=== PATIENT | female | born 2000 | race Caucasian/White ===

== ENCOUNTER → 2023-11-08 | Outpatient (CLI) | payer OTHER ==
[2023-11-08 13:36] LABS: BASO % 0.3 % (0.0-1.0); EOS # 0.1 10^3/uL (0.0-0.5); HEMATOCRIT 38.3 % (36.0-47.0); HEMOGLOBIN 13.5 g/dl (12.0-15.5); LYMPH # 2.8 10^3/uL (1.5-5.0); LYMPH % 46.4 % (24.0-44.0); MEAN CORPUSCULAR HEMOGLOBIN 30.6 pg (27.0-33.0); MEAN CORPUSCULAR HGB CONC 35.2 g/dl (32.0-36.5); MEAN CORPUSCULAR VOLUME 86.8 fl (80.0-96.0); MONO # 0.4 10^3/uL (0.0-0.8); MONO % 5.8 % (2.0-8.0); NEUTROPHILS # 2.8 10^3/uL (1.5-8.5); NEUTROPHILS % 46.3 % (36.0-66.0); PLATELET COUNT, AUTOMATED 355 10^3/uL (150-450); RED BLOOD COUNT 4.41 10^6/uL (4.00-5.40); WHITE BLOOD COUNT 6.1 10^3/uL (4.0-10.0)
[2023-11-08 14:00] LABS: ERYTHROCYTE SEDIMENTATION RATE 14 mm/hr (0-20)
[2023-11-08 14:01] LABS: C REACTIVE PROTEIN QUANTITATIV < 0.40 MG/DL (<1.0); LIPASE 29 U/L (12-53)
[2023-11-08 14:02] LABS: CPK CREATINE PHOSPHOKINASE 45 U/L (34-145)
[2023-11-08 14:03] LABS: IRON (FE) 110 UG/DL (50-170); PERCENT SATURATION 37.2 % (13.2-45.0); THYROID STIMULATING HORMONE 1.422 uIU/ML (0.55-4.78); TOTAL IRON BINDING CAPACITY 296 UG/DL (250-425)
[2023-11-08 14:04] LABS: ALBUMIN 4.2 G/DL (3.2-5.2); ALKALINE PHOSPHATASE 64 U/L (46-116); ALT/SGPT 10 U/L (7.0-40); AST/SGOT 8 U/L (<34); BILIRUBIN,DIRECT 0.2 MG/DL (<0.4); BILIRUBIN,TOTAL 0.6 MG/DL (0.3-1.2); BLOOD UREA NITROGEN 9 MG/DL (9-23); CALCIUM LEVEL 8.8 MG/DL (8.5-10.1); CARBON DIOXIDE LEVEL 22 MMOL/L (20-31); CHLORIDE LEVEL 111 MMOL/L (98-107); CREATININE FOR GFR 0.54 MG/DL (0.55-1.30); FERRITIN 40.1 NG/ML (7.3-270.7); FOLATE 14.4 NG/ML (>5.4); FREE T4 1.23 NG/DL (0.89-1.76); GLOMERULAR FILTRATION RATE > 60.0 (>60); GLUCOSE, FASTING 78 MG/DL (60-100); MAGNESIUM LEVEL 2.1 MG/DL (1.8-2.4); POTASSIUM SERUM 3.8 MMOL/L (3.5-5.1); RHEUMATOID FACTOR QUANT < 3.5 IU/ML (<14); SODIUM LEVEL 142 MMOL/L (136-145); TOTAL PROTEIN 7.2 G/DL (5.7-8.2)
[2023-11-08 14:05] LABS: VITAMIN B12 LEVEL 477 PG/ML (211-911)
[2023-11-09 23:58] LABS: CYCLIC CITRULLINATED PEPTIDE < 16 UNITS (<20)
== END ==
LOC: M LAB 12:20
PROVIDERS: ATTEND Physician Assistant
DX: R19.5 Other fecal abnormalities (principal); M79.10 Myalgia, unspecified site; R53.83 Other fatigue

== ENCOUNTER 2023-12-06 20:59 | Inpatient (IN) | payer OTHER ==
[~2023-12-06] VITALS: Ht 157.5 cm; Wt 58.0 kg
[2023-12-06 21:27] LABS: HEMATOCRIT 41.9 % (36.0-47.0); HEMOGLOBIN 14.2 g/dl (12.0-15.5); MEAN CORPUSCULAR HEMOGLOBIN 29.7 pg (27.0-33.0); MEAN CORPUSCULAR HGB CONC 33.9 g/dl (32.0-36.5); MEAN CORPUSCULAR VOLUME 87.7 fl (80.0-96.0); PLATELET COUNT, AUTOMATED 391 10^3/uL (150-450); RED BLOOD COUNT 4.78 10^6/uL (4.00-5.40); WHITE BLOOD COUNT 7.2 10^3/uL (4.0-10.0)
[2023-12-06 21:52] LABS: AMPHETAMINES LEVEL URINE NEGATIVE (NEGATIVE); BARBITURATES URINE NEGATIVE (NEGATIVE); BENZODIAZEPINES URINE NEGATIVE (NEGATIVE); COCAINE METABOLITE URINE NEGATIVE (NEGATIVE); METHADONE URINE NEGATIVE (NEGATIVE); OPIATES URINE NEGATIVE (NEGATIVE); PHENCYCLIDINE URINE NEGATIVE (NEGATIVE)
[2023-12-06 21:53] LABS: CANNABINOIDS URINE POSITIVE (NEGATIVE)
[2023-12-06 21:54] LABS: ETHYL ALCOHOL (ETHANOL) < 0.003 % (0.000-0.010)
[2023-12-06 21:56] LABS: ALBUMIN 4.7 G/DL (3.2-5.2); ALKALINE PHOSPHATASE 84 U/L (46-116); ALT/SGPT 13 U/L (7.0-40); AST/SGOT 12 U/L (<34); BILIRUBIN,DIRECT 0.2 MG/DL (<0.4); BILIRUBIN,TOTAL 0.8 MG/DL (0.3-1.2); BLOOD UREA NITROGEN 13 MG/DL (9-23); CALCIUM LEVEL 9.7 MG/DL (8.5-10.1); CARBON DIOXIDE LEVEL 22 MMOL/L (20-31); CHLORIDE LEVEL 107 MMOL/L (98-107); GLOMERULAR FILTRATION RATE > 60.0 (>60); GLUCOSE, FASTING 82 MG/DL (60-100); POTASSIUM SERUM 3.9 MMOL/L (3.5-5.1); SALICYLATE LEVEL < 3.0 MG/DL (<30); SODIUM LEVEL 139 MMOL/L (136-145)
[2023-12-06 21:58] LABS: THYROID STIMULATING HORMONE 1.195 uIU/ML (0.55-4.78)
[2023-12-06 22:12] LABS: HCG, SERUM QUALITATIVE NEGATIVE (NEGATIVE)
[2023-12-06] MEDS: KETOROLAC 30 MG/ML 1ML VIAL IM ONE (23:18)
[2023-12-07] MEDS ORDERED: NORT25CA2 PO (00:06)
[2023-12-07] MEDS ORDERED: IBUP1TAB6 PO (00:06)
[2023-12-07] MEDS ORDERED: RIZA10TA2 PO (00:06)
[2023-12-07] MEDS ORDERED: HOME MED LIST COMPLETE! XX SCH (00:10)
[2023-12-07] MEDS: hydrOXYzine 50 MG TAB PO ONE (17:25)
[2023-12-07] MEDS ORDERED: MOM 30ML SUSPENSION UDC PO PRN (19:00)
[2023-12-07] MEDS ORDERED: MAALOX 30 ML SUSP *UDC PO PRN (19:00)
[2023-12-07 19:50] VITALS: BP 131/92; TEMP 97.2; O2SAT 100
[2023-12-07] MEDS: traZODone 50 MG TAB PO PRN (21:12)
[2023-12-08 06:10] VITALS: BP 108/65; TEMP 98.6; O2SAT 100
[2023-12-08] MEDS: ACETAMINOPHEN TAB 650MG DOSE (2X325MG) PO PRN (11:06)
[2023-12-08] MEDS: NICOTINE 21MG/24HR 1 EA TRANSDERMAL TD SCH (11:57)
[2023-12-08 16:45] VITALS: BP 123/68; TEMP 97.3; O2SAT 96
[2023-12-08 17:16] LABS: APPEARANCE, URINE CLOUDY (CLEAR); BACTERIA, URINE AUTO 2+ (NEGATIVE); BILIRUBIN, URINE AUTO NEGATIVE (NEGATIVE); BLOOD, URINE BLOOD 1+ (NEGATIVE); COLOR, URINE YELLOW (YELLOW); GLUCOSE, URINE (UA) AUTO NEGATIVE (NEGATIVE); KETONE, URINE AUTO 2+ mg/dL (NEGATIVE); LEUKOCYTE ESTERASE, URINE AUTO TRACE (NEGATIVE); MUCUS, URINE SMALL (NEGATIVE); NITRITE, URINE AUTO NEGATIVE (NEGATIVE); PROTEIN, URINE AUTO 1+ mg/dL (NEGATIVE); RBC, URINE AUTO 1 /HPF (0-3); SPECIFIC GRAVITY URINE AUTO 1.025 (1.002-1.035); SQUAMOUS EPITHELIAL CELL UR AU 6 /HPF (0-6); UROBILINOGEN, URINE AUTO 0.2 mg/dL (0.0-2.0); WBC, URINE AUTO 13 /HPF (0-3)
[2023-12-08 19:15] LABS: Trichomonas vaginalis (AMP) NOT DETECTED (NEGATIVE)
[2023-12-08 19:38] LABS: GC DNA AMPLIFICATION NEGATIVE (NEGATIVE)
[2023-12-09] MEDS: diphenhydrAMINE 25MG CAP PO PRN (00:24)
[2023-12-09 06:03] VITALS: BP 114/63; TEMP 98.8; O2SAT 94
[2023-12-09 16:01] VITALS: BP 112/77; TEMP 98.7; O2SAT 98
[2023-12-09] MEDS: IBUPROFEN 400MG TAB PO PRN (17:06)
[2023-12-09] MEDS ORDERED: methylPREDNISolone 125MG 2ML VIAL IV STA (17:46)
[2023-12-09] MEDS ORDERED: IPRATROPIUM 0.5MG/ALBUTEROL 2.5MG INH SOL UD 3ML (DUONEB) NEB STA (17:48)
[2023-12-09] MEDS ORDERED: ISOVUE-370 76% 100ML VIAL As Ordered ONE (17:52)
[2023-12-09] MEDS: LORazepam 2 MG/ML 1ML VIAL IV STA (18:09)
== END 2023-12-09 18:15 | disposition still patient (30) | DRG 881 ==
LOC: M ED 20:59 → EDBD 20:59 → M ED INP 12-07 18:56 → M PSY 12-07 19:55
PROVIDERS: ADMIT Student in an Organized Health Care Education/Training Program; ATTEND Student in an Organized Health Care Education/Training Program
DX: F32.A Depression, unspecified (principal); R45.851 Suicidal ideations; Z88.0 Allergy status to penicillin; F17.200 Nicotine dependence, unspecified, uncomplicated; F60.3 Borderline personality disorder; G43.909 Migraine, unspecified, not intractable, without status migrainosus; F43.10 Post-traumatic stress disorder, unspecified; F41.9 Anxiety disorder, unspecified; R30.0 Dysuria; N89.8 Other specified noninflammatory disorders of vagina

== ENCOUNTER 2023-12-09 18:16 | Observation (INO) | payer OTHER ==
[~2023-12-09] VITALS: Ht 158.8 cm; Wt 58.6 kg
[~2023-12-09 18:16] MED LIST: IBUP1TAB6 PO; NORT25CA2 PO; RIZA10TA2 PO
[2023-12-09] MEDS ORDERED: LIDOCAINE 1% MDV 20ML VIAL As Ordered ONE (18:26)
[2023-12-09] MEDS: LIDOCAINE 1% MDV 20ML VIAL SC ONE (19:05)
[2023-12-09 19:16] VITALS: BP 113/71; TEMP 98.6; O2SAT 100
[2023-12-09 19:18] LABS: HEMATOCRIT 30.5 % (36.0-47.0); HEMOGLOBIN 11.1 g/dl (12.0-15.5); MEAN CORPUSCULAR HEMOGLOBIN 30.5 pg (27.0-33.0); MEAN CORPUSCULAR HGB CONC 36.4 g/dl (32.0-36.5); MEAN CORPUSCULAR VOLUME 83.8 fl (80.0-96.0); PLATELET COUNT, AUTOMATED 346 10^3/uL (150-450); RED BLOOD COUNT 3.64 10^6/uL (4.00-5.40); WHITE BLOOD COUNT 6.8 10^3/uL (4.0-10.0)
[2023-12-09 19:44] LABS: ALBUMIN 4.3 G/DL (3.2-5.2); ALKALINE PHOSPHATASE 74 U/L (46-116); ALT/SGPT 12 U/L (7.0-40); AST/SGOT 10 U/L (<34); BILIRUBIN,TOTAL 0.5 MG/DL (0.3-1.2); BLOOD UREA NITROGEN 11 MG/DL (9-23); CALCIUM LEVEL 9.7 MG/DL (8.5-10.1); CARBON DIOXIDE LEVEL 20 MMOL/L (20-31); CHLORIDE LEVEL 107 MMOL/L (98-107); CREATININE FOR GFR 0.58 MG/DL (0.55-1.30); GLOMERULAR FILTRATION RATE > 60.0 (>60); GLUCOSE, FASTING 101 MG/DL (60-100); POTASSIUM SERUM 3.5 MMOL/L (3.5-5.1); SODIUM LEVEL 136 MMOL/L (136-145); TOTAL PROTEIN 7.1 G/DL (5.7-8.2)
[2023-12-09 19:50] VITALS: BP 110/72; TEMP 97.7; O2SAT 100
[2023-12-09] MEDS: IPRATROPIUM 0.5MG/ALBUTEROL 2.5MG INH SOL UD 3ML (DUONEB) NEB SCH (19:56)
[2023-12-09] MEDS: LIDOCAINE 5% (LIDODERM) PATCH TD SCH (20:04)
[2023-12-09] MEDS ORDERED: ENOXAPARIN 100MG/1ML SYRINGE (J1650 PER 10MG) SC SCH (20:45)
[2023-12-09] MEDS: LORazepam 2 MG/ML 1ML VIAL IM STA (21:11)
[2023-12-09] MEDS: IBUPROFEN 400MG TAB PO PRN (21:49)
[2023-12-09] MEDS ORDERED: MAALOX 30 ML SUSP *UDC PO PRN (22:00)
[2023-12-09 22:03] LABS: CREATININE FOR GFR 0.53 MG/DL (0.55-1.30); GLOMERULAR FILTRATION RATE > 60.0 (>60)
[2023-12-09 23:08] VITALS: BP 119/75; TEMP 98.8; O2SAT 99
[2023-12-09] MEDS: LORazepam 0.5 MG TAB PO PRN (23:21)
[2023-12-10] MEDS: METHOCARBAMOL 1,000 MG/10 ML VIAL IV ONE (01:42)
[2023-12-10] MEDS: ACETAMINOPHEN 500 MG TAB PO ONE (01:42)
[2023-12-10 03:00] VITALS: BP 104/61; TEMP 97.2; O2SAT 96
[2023-12-10] MEDS ORDERED: LEVALBUTEROL 1.25MG 0.5ML CONCENTRATE NEB INH PRN (03:00)
[2023-12-10 05:45] LABS: HEMATOCRIT 34.6 % (36.0-47.0); HEMOGLOBIN 12.2 g/dl (12.0-15.5); MEAN CORPUSCULAR HEMOGLOBIN 29.9 pg (27.0-33.0); MEAN CORPUSCULAR HGB CONC 35.3 g/dl (32.0-36.5); MEAN CORPUSCULAR VOLUME 84.8 fl (80.0-96.0); PLATELET COUNT, AUTOMATED 373 10^3/uL (150-450); RED BLOOD COUNT 4.08 10^6/uL (4.00-5.40); WHITE BLOOD COUNT 5.5 10^3/uL (4.0-10.0)
[2023-12-10 06:16] LABS: BLOOD UREA NITROGEN 10 MG/DL (9-23); CALCIUM LEVEL 9.2 MG/DL (8.5-10.1); CARBON DIOXIDE LEVEL 21 MMOL/L (20-31); CHLORIDE LEVEL 109 MMOL/L (98-107); CREATININE FOR GFR 0.48 MG/DL (0.55-1.30); GLOMERULAR FILTRATION RATE > 60.0 (>60); GLUCOSE, FASTING 157 MG/DL (60-100); SODIUM LEVEL 139 MMOL/L (136-145)
[2023-12-10 07:50] VITALS: BP 110/68; TEMP 97.2; O2SAT 98
[2023-12-10] MEDS: ENOXAPARIN 40MG/0.4ML SYRINGE (J1650 PER 10MG) SC SCH (08:43)
[2023-12-10] MEDS ORDERED: ENOXAPARIN 40MG/0.4ML SYRINGE (J1650 PER 10MG) SC SCH (09:00)
[2023-12-10] MEDS ORDERED: HOME MED LIST COMPLETE! XX SCH (10:20)
[2023-12-10 11:54] VITALS: BP 110/70; TEMP 98.8; O2SAT 100
[2023-12-10] MEDS: MORPHINE 2 MG/ML 1ML VIAL IV ONE (13:00)
[2023-12-10 16:01] VITALS: BP 109/71; TEMP 98; O2SAT 98
[2023-12-10 19:46] VITALS: BP 115/78; TEMP 97.8; O2SAT 100
[2023-12-10] MEDS: ACETAMINOPHEN TAB 650MG DOSE (2X325MG) PO ONE (21:06)
[2023-12-10] MEDS: GABAPENTIN 100 MG CAP PO ONE (22:34)
[2023-12-11 00:18] VITALS: BP 111/72; TEMP 97.6; O2SAT 99
[2023-12-11] MEDS: ACETAMINOPHEN 500 MG TAB PO ONE (01:00)
[2023-12-11] MEDS: CYCLOBENZAPRINE 10MG TABLET PO SCH (01:00)
[2023-12-11] MEDS: KETOROLAC 30 MG/ML 1ML VIAL IV ONE (01:52)
[2023-12-11 04:52] VITALS: BP 104/62; TEMP 97.4; O2SAT 99
[2023-12-11 08:47] VITALS: BP 112/73; TEMP 97.2; O2SAT 94
[2023-12-11 09:47] LABS: FOLATE 7.69 NG/ML (>5.4)
[2023-12-11 09:48] LABS: VITAMIN B12 LEVEL 482 PG/ML (211-911)
[2023-12-11 09:52] LABS: PROCALCITONIN <0.04 ng/ml
[2023-12-11] MEDS: NICOTINE 14 MG/24 HR TRANSDERMAL TD SCH (10:08)
[2023-12-11 12:03] VITALS: BP 107/74; TEMP 97.7; O2SAT 100
== END 2023-12-11 13:02 | disposition home or self-care (01) ==
LOC: M PCU 18:16
PROVIDERS: ADMIT Internal Medicine; ATTEND Internal Medicine
DX: R07.9 Chest pain, unspecified (principal); F41.0 Panic disorder [episodic paroxysmal anxiety]; F32.A Depression, unspecified; R06.02 Shortness of breath; R00.0 Tachycardia, unspecified; M54.9 Dorsalgia, unspecified; R45.851 Suicidal ideations; F31.9 Bipolar disorder, unspecified; J45.20 Mild intermittent asthma, uncomplicated; R82.71 Bacteriuria; F43.10 Post-traumatic stress disorder, unspecified; F60.9 Personality disorder, unspecified; G43.909 Migraine, unspecified, not intractable, without status migrainosus; N80.9 Endometriosis, unspecified; Z79.899 Other long term (current) drug therapy; Z88.0 Allergy status to penicillin
CPT/HCPCS: 36415; 71111; 71275; 72110; 72146; 72148; 80048; 80053; 82565; 82607; 82746; 84145; 84484; 85027; 85379; 93005; 94640; 96372; 96374; 96375; 97161; 97164; 97530; J1650; J1885; J2800

== ENCOUNTER 2023-12-11 22:55 | Emergency (ER) | payer OTHER ==
[~2023-12-11] VITALS: Ht 157.5 cm; Wt 56.6 kg
[2023-12-11 22:56] VITALS: BP 121/81; TEMP 98.2; O2SAT 100
== END 2023-12-12 00:53 | disposition left against medical advice (07) ==
LOC: M ED 22:55
DX: Z53.21 Procedure and treatment not carried out due to patient leaving prior to being seen by health care provider (principal)

== ENCOUNTER → 2024-01-15 | Outpatient (REF) | payer OTHER | LOC: M LAB REF 17:05 | PROVIDERS: ATTEND Nurse Practitioner Adult Health | DX: N89.8 Other specified noninflammatory disorders of vagina (principal); R35.0 Frequency of micturition ==